=== PATIENT | female | born 1985 | race Caucasian/White ===

== ENCOUNTER → 2018-10-04 14:31 | Outpatient (REF) | payer OTHER, SELFPAY ==
[2018-10-04 14:35] LABS: Bacteria Urine None Seen
[2018-10-04 14:52] LABS: Appearance Urine UA CLEAR; Bilirubin Urine UA NEGATIVE (NEGATIVE); Color Urine UA YELLOW; Glucose Urine UA NEGATIVE (Negative); Ketones Urine UA NEGATIVE (NEGATIVE); Leukocyte Esterase Urine UA 1+ (NEGATIVE); Nitrite Urine UA NEGATIVE (Negative); Occult Blood Urine UA TRACE-INTACT (Negative); Protein Urine UA NEGATIVE (Negative); Specific Gravity Urine UA <=1.005 (1.000-1.035); Urobilinogen Urine UA 0.2 E.U./dL (0.2)
[2018-10-04 15:01] LABS: Culture Indicated Urine Cult Not Indicated; RBC Urine 1-5/HPF (0-5/HPF); Squamous Epithelial Cell Urine 5-10 /HPF; WBC Urine 5-10/HPF (0-5/HPF)
== END ==
LOC: LAB 14:31
PROVIDERS: PCP Family Medicine; Visit Provider Internal Medicine
DX: N39.0 Urinary tract infection, site not specified (principal)
CPT/HCPCS: 81001

== ENCOUNTER 2019-05-23 10:34 | Day surgery (SDC) | payer OTHER, SELFPAY ==
[2019-05-17 10:49] VITALS: BMI 24.3
[2019-05-23] VITALS (13 sets, daily range): BP systolic 93–122; BP diastolic 53–78; PULSE 48–97; RESP 10–18; TEMP 36–37.2; O2SAT 97–100; BMI 23.1
--- NOTE | 2019-05-23 11:45 | PM.HP.1 ---
History of Present Illness History of Present Illness Date Patient Seen: 05/23/19 Time Patient Seen: 11:45 Chief complaint: HYSTEROSCOPY D&C W/NOVASURE ABLATION Narrative: This patient is a 34-year-old para 1 with a history of heavy menstrual bleeding leading to acute blood loss anemia, presenting for scheduled endometrial ablation. Patient reports that she has a mild headache secondary to no caffeine this morning, but is otherwise feeling well with no complaints. We discussed the fact that endometrial ablation is considered permanent, and the would be contraindicated after this procedure. We further discussed that despite this, contraception is necessary to prevent said . Patient reports that her has had a vasectomy, but they are confident in their decisions stated not want any more children, and that she understands that should she have a new partner she would need contraception. Patient History Medical History Fatigue (Chronic) Hypertension (Chronic) (normal spontaneous vaginal delivery) (Acute) Family & Social History Social History: household members spouse,children lives independently Yes caregiver/support person No Tobacco & Substance use: Smoking Status Never smoker Meds Home Medications and Allergies Home Medications Medication Instructions Recorded Confirmed Type bupropion HCl 150 mg 24 hr tablet, 150 mg PO QAM 10/25/18 04/12/19 History extended release hydrochlorothiazide 12.5 mg tablet 12.5 mg PO DAILY 10/25/18 04/12/19 History metoprolol succinate 25 mg capsule 25 mg PO DAILY 10/25/18 04/12/19 History sprinkle, ext. release 24 hr cholecalciferol (vitamin D3) 50 2,000 unit PO BID cap 04/12/19 04/12/19 History mcg (2,000 unit) capsule ferrous sulfate 325 mg (65 mg 325 mg PO BID 04/12/19 04/12/19 History iron) tablet vitamin B complex 1 tab PO DAILY 04/12/19 04/12/19 History Allergies Allergy/AdvReac Type Severity Reaction Status Date / Time No Known Drug Allergies Allergy Verified 04/12/19 09:37 Review of Systems Constitutional Constitutional: Reports system reviewed and no additional complaints, except as documented Cardiovascular Cardiovascular: Reports system reviewed; no additional complaints, except as documented Respiratory Respiratory: Reports system reviewed and no additional complaints, except as documented Gastrointestinal Gastrointestinal: Reports system reviewed and no additional complaints, except as documented Genitourinary Genitourinary: Reports system reviewed and no additional complaints, except as documented Musculoskeletal Musculoskeletal: Reports system reviewed; no additional complaints, except as documented Neurologic Neurologic: Reports system reviewed and no additional complaints, except as documented Exam Vital Signs (past 8 hours): - 05/23/19 11:26 Temperature 99 F Pulse Rate 97 H Respiratory Rate 16 Blood Pressure 122/78 Pulse Oximetry 98 Oxygen Delivery Method Room Air Const General: cooperative, healthy appearing and comfortable Orientation: alert, awake and oriented x3 Resp Effort & Inspection: normal respiratory effort Auscultation: clear to auscultation bilaterally Cardio Rate: regular rate Rhythm: regular rhythm GI Palpation: soft and No tender Assessment & Plan Assessment and plan (1) Abnormal uterine bleeding: Current visit: No Status: Acute Assessment & Plan narrative: This patient presents for scheduled endometrial ablation, and we discussed risks and benefits of the procedure, contraindication of afterwards, and requirement for contraception afterwards. The patient vocalized understanding, and signed the proper consents. Patient reiterates that she and her desire no further children, and that her 's vasectomy precludes further children. Time Spent With Patient Time with patient: less than 15 minutes
--- NOTE | 2019-05-23 11:50 | PM.PREOP ---
Pre-operative Note Interval Note History & Physical reviewed/Exam performed by Physician: Yes Changes to H&P: No
--- NOTE | 2019-05-23 13:32 | SUR.OPER ---
Lithotomy on padded OR bed, head on pillow, arms secured on padded arm boards at <90 degrees abduction. Legs secured in padded yellow fins stirrups.
--- NOTE | 2019-05-23 13:39 | SUR.OPER ---
cavity length 5.0cm, cavity width 4.4cm, power 121 golden, time 99 seconds
--- NOTE | 2019-05-23 13:48 | PM.GYNOP.1 ---
Operative Date/Time/Diagnoses Date of procedure: 05/23/19 Time of procedure: 13:30 Pre-op diagnosis: Abnormal uterine bleeding without malignancy or structural abnormality Post-op diagnosis: same Procedure & Clinicians Procedure: Procedures Operation Date: 05/23/19 12:15 Actual Procedures Side Surgeon p Novasure Endometrial Ablation Not Applicable Rosibel Grullon MD Indications: Abnormal uterine bleeding Surgeon: Rosibel Grullon Shingle Shearing Machine Operator: Otilia Delacruz Anesthesia Type: Sedation Operative Notes Findings: Normal vulva and vagina. cervix with prominent ectropion, patulous cervical os. Uterine total length 9cm, cavity length 8.5cm, width 4.4cm, power 121 w, time of ablation 99 seconds. Closure Type: not applicable Specimen(s): none Estimated blood loss (mL): 5 Blood products transfused: none Procedure in detail: Patient was taken to the operating room after voiding. Patient was placed in the dorsal lithotomy position with SCDs in place and on. The patient was prepped and draped in normal sterile fashion, and a speculum inserted in the vagina or the cervix was easily visualized. Anterior lip of the cervix was grasped with a tenaculum, and serial Berrios dilators were used to dilate cervical os to 8 mm. A uterine sound was used to confirm that the uterus in total was 8.5 cm long, and the NovaSure sound was used to assess the endometrial cavity and found it to be 5 cm long. The NovaSure device was placed into the uterus with cervix, and the ablation device deployed, measuring at cavity width of 4.4 cm. A cavity assessment was passed. The procedure was commenced at a power of 121 w, and required 99 seconds of burn time. Once the ablation was complete, the NovaSure device was removed from the uterus, the tenaculum was removed from the cervix, and good hemostasis was noted. There were no intraoperative or immediate postoperative complications. Blood loss was minimal. Complications: none Post-operative Condition: stable Disposition: PACU Plan for aftercare: Patient for discharge home with outpatient follow up.
[2019-05-23] MEDS: fentaNYL 100 MCG/2 ML INJ IV ×2 (14:08→14:20)
[2019-05-23] MEDS: ONDANSETRON 4 MG/2 ML INJ IV (14:10)
[2019-05-23] MEDS: OXYCODONE/ACETAMINOPHEN 5/325 TABLET 1 TAB PO (14:28)
[2019-05-23] MEDS: METOCLOPRAMIDE 10 MG/2 ML INJ IV (15:00)
== END 2019-05-23 17:20 | disposition home or self-care (01) ==
PROVIDERS: Family Provider Family Medicine; PCP Family Medicine; Visit Provider Obstetrics & Gynecology
PROC: 0UDB8ZZ Extraction of Endometrium, Via Natural or Artificial Opening Endoscopic (ICD-10-PCS; CPT 58558; principal; 2019-05-23 12:15)
DX: N93.9 Abnormal uterine and vaginal bleeding, unspecified (principal); N92.0 Excessive and frequent menstruation with regular cycle; I10 Essential (primary) hypertension
CPT/HCPCS: 58353; 94762; J1100; J1885; J2250; J2405; J2704; J2765; J3010

== ENCOUNTER → 2020-12-13 15:37 | Outpatient (CLI) | payer OTHER, SELFPAY ==
--- NOTE | 2020-12-13 15:38 | DI.CT.S_ITS ---
PROCEDURE: CT SINUS SCREEN WO CON INDICATIONS: CHRONIC SINUSITIS,DEVIATED SEPTUM TECHNIQUE: Noncontrast 3.0 mm axial images acquired from the frontal sinuses to the mid-sella, with coronal and sagittal reformats. For radiation dose reduction, the following was used: automated exposure control, adjustment of mA and/or kV according to patient size. COMPARISON: None. FINDINGS: Image quality: Excellent. Maxillary Sinuses: No bony remodeling or destruction. Sinuses are clear. Ethmoid Air Cells: No bony remodeling or destruction. Sinuses are clear. Sphenoid Sinuses: No bony remodeling or destruction. Small amount of aerated secretions in the posterior right sphenoid sinus. No obstruction of the sphenoid ethmoid recesses. Frontal Sinuses: No bony remodeling or destruction. Sinuses are clear. Ostiomeatal Complexes: Ostiomeatal complexes are patent. No Selene cells. Miscellaneous: Visualized intra-orbital contents are normal. No ady bullosa or paradoxical turbinate curvature. Mild S-shaped nasal septal deviation. No significant spurring or mucosal contact point. IMPRESSION: Minimal mucosal thickening and aerated secretions in the right sphenoid sinus without obstruction or fluid level. Dictated by: Anil Graham M.D. on 12/13/2020 at 16:39 Approved by: Anil Graham M.D. on 12/13/2020 at 16:40
== END ==
PROVIDERS: Family Provider Family Medicine; PCP Family Medicine; Referring Provider Family Medicine; Visit Provider Family Medicine
DX: J32.9 Chronic sinusitis, unspecified (principal); J34.2 Deviated nasal septum
CPT/HCPCS: 70486

== ENCOUNTER → 2023-11-28 08:42 | Outpatient (CLI) | payer OTHER, SELFPAY ==
[2023-11-28 09:14] LABS: Add Manual Diff / Slide Review NO; Basophils Absolute Auto 0 /uL (0-100); Basophils Percent Auto 0.5 % (0-2); Eosinophils Absolute Auto 100 /uL (0-450); Hematocrit 36.2 % (36-46); Hemoglobin 12.5 g/dL (12.0-16.0); Lymphocytes Absolute Auto 1300 /uL (1100-4500); Lymphocytes Percent Auto 36.7 % (25-40); Mean Corpuscular HGB Conc 34.6 % (30-36); Mean Corpuscular Hemoglobin 34.4 PG (26-34); Mean Corpuscular Volume 99.4 fL (80-100); Monocytes Absolute Auto 400 /uL (0-900); Monocytes Percent Auto 10.5 % (3-14); Neutrophils Absolute Auto 1700 /uL (1500-7000); Neutrophils Percent Auto 49.3 % (50-75); Platelet Count 215 X10^3/uL (150-400); Red Blood Cell Count 3.64 X10^6/uL (4.0-5.2); Red Cell Distribution Width 13.2 % (11.6-14.8); White Blood Cell Count 3.4 X10^3/uL (4.5-11.0)
[2023-11-28 09:31] LABS: HEMOLYSIS < 15 (0-50)
[2023-11-28 09:48] LABS: Free T4, Direct Thyroxine 0.98 ng/dL (0.78-2.19)
[2023-11-28 09:53] LABS: Alanine Aminotransferase 23 IU/L (<35); Albumin 4.4 g/dL (3.5-5.0); Albumin Globulin Ratio 1.6 (1.0-2.8); Alkaline Phosphatase 43 U/L (38-126); Aspartate Aminotransferase 33 IU/L (14-36); BUN Creatinine Ratio 10.7 (6-22); Bilirubin Total 0.7 mg/dL (0.2-1.3); Blood Urea Nitrogen 9 mg/dL (7-17); Calcium 9.4 mg/dL (8.4-10.2); Carbon Dioxide 31 mmol/L (22-32); Chloride 102 mmol/L (98-107); Cholesterol 230 mg/dL (140-199); Estimated Glomerular Filt Rate > 60 mL/min (>60); Globulin 2.7 g/dL (1.7-4.1); Glucose 86 mg/dL (70-100); HDL Cholesterol 98 mg/dL (40-60); LDL Cholesterol Calculated 104 mg/dL (<100); Potassium 4.4 mmol/L (3.4-5.1); Sodium 137 mmol/L (137-145); Total Protein 7.1 g/dL (6.3-8.2); Triglycerides 139 mg/dL (35-150)
[2023-11-28 10:02] LABS: Thyroid Stimulating Hormone 1.78 uIU/mL (0.47-4.68)
== END ==
PROVIDERS: Family Provider Family Medicine; PCP Family Medicine; Referring Provider Family Medicine; Visit Provider Family Medicine
DX: Z00.00 Encounter for general adult medical examination without abnormal findings (principal); R87.610 Atypical squamous cells of undetermined significance on cytologic smear of cervix (ASC-US); D50.0 Iron deficiency anemia secondary to blood loss (chronic); Z13.0 Encounter for screening for diseases of the blood and blood-forming organs and certain disorders involving the immune mechanism; Z13.29 Encounter for screening for other suspected endocrine disorder; E78.00 Pure hypercholesterolemia, unspecified; D70.8 Other neutropenia
CPT/HCPCS: 36415; 80053; 80061; 84439; 84443; 85025

== ENCOUNTER → 2024-06-02 17:15 | Outpatient (CLI) | payer OTHER, SELFPAY ==
[2024-06-02 17:40] LABS: Add Manual Diff / Slide Review NO; Basophils Absolute Auto 0 /uL (0-100); Basophils Percent Auto 0.3 % (0-2); Eosinophils Absolute Auto 100 /uL (0-450); Eosinophils Percent Auto 1.7 % (2-4); Hematocrit 36.4 % (36-46); Hemoglobin 12.4 g/dL (12.0-16.0); Lymphocytes Absolute Auto 1900 /uL (1100-4500); Lymphocytes Percent Auto 37.1 % (25-40); Mean Corpuscular Hemoglobin 33.9 PG (26-34); Mean Corpuscular Volume 99.7 fL (80-100); Monocytes Absolute Auto 500 /uL (0-900); Monocytes Percent Auto 9.4 % (3-14); Neutrophils Absolute Auto 2700 /uL (1500-7000); Neutrophils Percent Auto 51.5 % (50-75); Platelet Count 229 X10^3/uL (150-400); Red Blood Cell Count 3.65 X10^6/uL (4.0-5.2); Red Cell Distribution Width 12.8 % (11.6-14.8); White Blood Cell Count 5.2 X10^3/uL (4.5-11.0)
[2024-06-02 17:59] LABS: BUN Creatinine Ratio 13.3 (6-22); Blood Urea Nitrogen 12 mg/dL (7-17); Calcium 9.7 mg/dL (8.4-10.2); Carbon Dioxide 24 mmol/L (22-32); Chloride 103 mmol/L (98-107); Estimated Glomerular Filt Rate > 60 mL/min (>60); Glucose 94 mg/dL (70-100); HEMOLYSIS < 15 (0-50); Sodium 136 mmol/L (137-145)
== END ==
LOC: LAB 17:16
PROVIDERS: Family Provider Family Medicine; PCP Family Medicine; Referring Provider Family Medicine; Visit Provider Family Medicine
DX: I10 Essential (primary) hypertension (principal); D75.89 Other specified diseases of blood and blood-forming organs; D50.0 Iron deficiency anemia secondary to blood loss (chronic)
CPT/HCPCS: 36415; 80048; 85025